=== PATIENT | male | born 1980 | race Hispanic/Latino ===

== ENCOUNTER 2017-02-18 11:18 | Emergency (ER) | payer OTHER ==
[~2017-02-18] VITALS: Ht 167.6 cm; Wt 86.4 kg
[2017-02-18 11:30] VITALS: BP 172/78; PULSE 70; RESP 14; O2SAT 100
--- NOTE | 2017-02-18 11:44 | ED.REPORT ---
HPI-Extremity Problem Upper Date of Service Feb 18, 2017 ED Provider: Grupo Singh MD Efren is otherwise healthy and right-handed 36-year-old male patient with chief complaint of right wrist pain. Patient states he was standing on the third rung of an 8 foot ladder when he fell to the ground, catching himself onto outstretched right hand. Patient states that he also struck his right forehead and felt momentarily dazed. Denies loss of consciousness, headache, vomiting, seizure, use of blood thinners or bleeding/clotting disorders. Denies neck pain. Complains of severe pain in his right wrist. Nursing Notes Stated Complaint: RIGHT WRIST PAIN Chief Complaint: Extremity Trauma Allergies: Coded Allergies: No Known Allergies (Unverified , 02/18/17) Scheduled PRN Hydrocodone-Acetaminophen 5-325 mg (Hydrocodone-Acetaminophen 5-325 mg) 1 Each Tablet 1-2 TABLET PO QID PRN PRN For Pain General Time Seen by MD: 11:44 Chief Complaint Hand injury right Past Medical History Past Medical History Denies Review of Systems Review of Systems Note: Negative unless stated otherwise in history of present illness Physical Exam General: Well appearing, well developed, well nourished, no acute distress. Head: Slight abrasion on the right forehead. Right elbow: Normal to inspection, nontender, full range of motion Right hand/wrist: Notable deformity at the base of the fourth metacarpal. Range of motion severely limited. Radial pulse 2+. Sensation brisk capillary refill intact in distal phalanges. Eyes: No scleral icterus or injection. No discharge. Vision grossly intact. ENT: Voice clear, hearing grossly intact. Respiratory: No respiratory distress, no increased work of breathing. Speaks in complete sentences. Skin: Warm and dry. Neurological: Grossly nonfocal. Psychological: alert and oriented. Speech appropriate, linear and logical. Behavior appropriate. Initial Vital Signs Vital Signs (First) Date Time Temp Pulse Resp B/P Pulse Ox O2 Delivery O2 Flow Rate FiO2 02/18/17 11:30 36.4 70 14 172/78 100 Room Air Elevated blood pressure Interpretation & Diagnostics Interpretation & Diagnostics: PROCEDURE: CT BRAIN WITHOUT CONTRAST ([id number]) INDICATIONS: fall, head injury IMPRESSION: 1. No definite acute intracranial hemorrhage. 2. Small focus of increased density overlying the inferior right frontal lobe near the sylvian fissure may represent a calcification. However, a subtle focal hemorrhage is difficult to exclude. The need for further evaluation utilizing MRI may be determined clinically PROCEDURE: CT CERVICAL SPINE WITHOUT CONTRAST ([id number]) INDICATIONS: 36 year-old male with head injury after fall. IMPRESSION: No acute bony injuries of the cervical and upper thoracic spine from the foramen magnum to the T4-T5 level. PROCEDURE: MRI BRAIN WITHOUT CONTRAST ([id number]) INDICATIONS: Abnormal CT,head injury IMPRESSION: 1. T2 hypointense circumscribed mass as described above which corresponds with a high density focus on CT from earlier today. This finding in conjunction with minimal susceptibility artifact on the gradient sequence suggests calcification as opposed to acute hemorrhage. If there is high clinical suspicion for intracranial hemorrhage, repeat CT in 4 hours could be considered. X-Ray Interpretation Xray Interpretation: PROCEDURE: X-RAY RIGHT HAND, MINIMUM THREE VIEWS ([id number]) INDICATIONS: FALL IMPRESSION: Dorsal dislocation of the metacarpals with respect to the carpal bones. Small fractures are present. Interpretation / Wet Read by: Interpret - Radiologist, [facility] Xray Interpretation: PROCEDURE: X-RAY RIGHT HAND, MINIMUM THREE VIEWS ([id number]) INDICATIONS: postreduction IMPRESSION: 1. Dorsal dislocations of the third, fourth, and fifth metacarpal sat the carpometacarpal joints are reduced. There is normal anatomic alignment. 2. Small fracture fragment (s) project proximal to the fifth metacarpal brace on the oblique view. Interpretation / Wet Read by: Interpret - Radiologist Procedures Proced Mod Sedation/Analgesia Time: 13:29 Procedure Performed by: ED physician Sedation Time: 10 - 15 min Consent / Setup: Informed consent provided, Consent from patient, Time-out performed, Hand hygiene observed, Patient sitting up Indication: Fracture reduction Preparation: monitoring and evaluation advisor applied, Pulse oximeter applied, Constant attendance, IV access established, Eval last meal time, Supplemental oxygen, Procedure explained, Suction available, End tidal CO2 mon applied VS Prior to Procedure: All vital signs normal Airway Exam: Normal anatomy CVS/Resp Exam: Normal breath sounds, Normal heart sounds Neuro Exam: Alert, No acute distress, Responsive Sedation: Sedation: Ketamine (50 mcg) ASA Classification: 1 normal healthy patient Response During Procedure: Handled secretions adeq, Maintained airway well, Oxygenation stable, Sedation appropriate, Vital signs stable Complications During/After: None Reversal: None required Mental Status After Procedure: Alert, Oriented X3, Response to verbal stim, Normal per age, At patient's baseline Post-Procedure: Alert prior to discharge, Ambulatory with assist, Pt rtn pre- proc baseline, Vital signs normal Attestation: I performed procedure, I performed sedation Reduction Finger The 3rd, 4th, and 5th metacarpals are dislocated dorsally with respect to the carpal bones. Time: 13:31 Procedure Performed by: ED physician Consent / Setup / Site Prep: Informed consent provided, Consent from patient, Time-out performed, Oxygen administered, Pulse oximeter applied, monitoring and evaluation advisor applied, Hand hygiene observed Finger / Joint Involved: Right 3, Right 4, Right 5 Procedural Sedation/Analgesia: Sedation: Ketamine (50 mcg) Post-Procedure / Complications: NV intact post-procedure, Procedure successful , X-ray confirms reduction, No complications, Tolerated procedure well, Patient stable Splint Application - Fx Mgt Time: 13:35 Procedure Performed by: Business Architect Precise Anatomic Location: right wrist Type of Immobilization: Sara tong Definitive Fracture Care: Pain control, Splint, Follow up > 4 days Post-Procedure / Complications: Cap refill normal, Post splint vascular nl, Post splint neuro nl, Condition improved, Tolerated procedure well, Patient stable Splint Post-Application Eval Extremity Condition: Cap refill < 2 sec, Distal sensation intact, Distal motor Intact, No compartment syndrome Re-Eval/Medical Decision Med Decision/Clinical Course Course of 36-year-old male presents with right hand pain following a fall from third rung of an 8 foot ladder. Patient reports landing on packed earth, causing right hand pain and striking his right forehead against the ground. He reports feeling dazed but denies losing consciousness, vomiting, seizure, headache, use of blood thinners. He also denies neck pain. On physical examination there is obvious deformity to the right hand near the base of the third metacarpal. Sensation and brisk capillary refill are intact distally, radial pulses 2+. X-ray confirms fracture and dislocation of the third fourth and fifth metacarpals in relation to the carpals. I discussed this with orthopedics who recommends reduction, splinting, follow-up in office. I discussed the case with Dr. Singh who met with and examined the patient, performed a reduction under procedural sedation with ketamine. Patient is placed in a splint. Post reduction x-ray shows near anatomical alignment. Dr. singh further recommend CT of the head and neck. This is reassuring for cervical injury but cannot definitively rule out small intracranial bleed. MRI is ordered based on the recommendation of radiology, which rules out bleeding. Patient is discharged to home with instructions for [id number] analgesia. Provide a small amount of [place] to supplement, with precautions. Provided orthopedic follow-up instructions. Provided emergency return precautions. Patient verbalizes understanding of and consent to plan. Re-Evaluation/Progress #1: Time of Eval: 15:19 Re-Evaluation/Progress Note: Patient reports continued headache. Discuss abnormal CT findings with the patient, discussed options of performing MRI or 24-hour CT to clarify. Patient consents to MRI. I discussed this with the radiologist who suggests MR head without contrast. Re-Evaluation/Progress #2: Time of Eval: 16:25 Re-Evaluation/Progress Note: Patient continues to do well. Complains of mild nausea likely secondary to narcotics. Consultation : Referral / Consult Name: Adam Parks MD Consulted With: Ortho hand Call Returned at: 12:41 Note: Dr. Grant recommends reduction by distracting the metacarpal and applying pressure to the dorsal aspect of the proximal end of the metacarpal. He feels that if there is a fracture and this will likely displace again. If the reduction remains, he asked that we place her in an ulnar gutter and have him follow-up in office in about a week. If not, he suggests ulnar gutter splint and follow-up in office urgently. Discharge & Departure Impression: Primary Impression: Hand fracture, right Encounter type: initial encounter Fracture type: closed Qualified Code: S62.91XA - Unspecified fracture of right wrist and hand, initial encounter for closed fracture Disposition: Home Discharge Condition All VS Reviewed: Yes Condition: Stable Patient Instructions: Splint Care (ED) Additional Instructions: Evaluation in the emergency department following a fall include interview, physical examination, x-rays of your hand and CT and MRI scans of your head and neck. These are reassuring that she did not have a serious head or neck injury. X-rays indicate a fracture in your right hand. After consultation with the orthopedic surgeon, We have reduced the displacement of the fracture in her right hand here in the emergency department and placed it in a splint. Please keep the splint on and dry until the hands assessed by the orthopedic surgeon. I have given her referral to the orthopedic surgeon, please contact his office tomorrow to arrange follow-up next week. The pain is best treated with 600 mg of ibuprofen (Advil, Motrin) every 6 hours , or 1000 mg of acetaminophen (Tylenol) every 6 hours. These drugs can be taken at the same time for more severe pain. I have written a prescription for a small amount of hydrocodone/acetaminophen 5/ 325 mg which can be SUBSTITUTED for the Tylenol to treat more severe pain. Do not take them together, and do not drink alcohol or operate a vehicle within 4 hours of taking this medication. Return emergency Department for any new or worsening symptoms including increasing pain in the hand or cold/numb fingers. Return also for increasing headache, neck pain, vomiting, seizure activity or other neurological symptoms. Referrals: Adam Parks MD EDSupervising Provider for APC: Grupo Singh MD Attestation Portions of this note were transcribed by Leah Hinson. I, Dr. Singh personally performed the history, physical exam and medical decision-making; I reviewed and confirmed the accuracy of the information in the transcribed note. Signed by: Niels Garcia, 02/18/2017 at 1400. Attending Statement Attending attestation: I saw this patient in conjunction with Doron Morrow PA-C. I was present for all aguiar portions of the history taking and physical examination. I agree with the workup, evaluation, treatment and disposition. In summary, the patient presents with hand/wrist injury as documented above. Patient was discussed with orthopedic surgery who recommended reduction at the bedside. I personally performed procedural sedation as well as fracture/dislocation reduction and splinting. The patient tolerated the procedure well. Repeat films demonstrated good ointment. Patient will be discharged with pain medication and follow-up with orthopedic surgery. Grupo Singh MD copies to: Adam Parks MD, Beck O MD Feb 18, 2017 11:44 Doron Morrow PA-C Feb 18, 2017 12:41 Leah Hinson Feb 18, 2017 13:35
[2017-02-18] MEDS ORDERED: HYDROcodone-APAP 5-325 mg Tablet PO ONE (11:55)
[2017-02-18] MEDS ORDERED: HYDROmorphone 1 mg/mL Inj IM ONE (12:25)
[2017-02-18] MEDS ORDERED: Ketamine 100 mg/mL 5 mL Inj IV ONE (12:40)
--- NOTE | 2017-02-18 12:44 | DRSVH ---
PROCEDURE: X-RAY RIGHT HAND, MINIMUM THREE VIEWS ([id number]) INDICATIONS: FALL TECHNIQUE: 3 views of the hand(s) acquired. COMPARISON: None. FINDINGS: Bones: The 3rd, 4th, and 5th metacarpals are dislocated dorsally with respect to the carpal bones. T here are subtle fractures involving the bases of these joints. No additional fractures are appreciat ed. There are mild degenerative changes of the distal radial ulnar joint with associated ulnar posit franck variance. Soft tissues: No suspicious soft tissue calcifications. No unexpected radiopaque foreign bodies are evident. IMPRESSION: Dorsal dislocation of the metacarpals with respect to the carpal bones. Small fractures are present. Dictated by: Marco Antonio Perales M.D. on 02/18/2017 at 11:41 Approved by: Marco Antonio Perales M.D. on 02/18/2017 at 11:42
--- NOTE | 2017-02-18 14:19 | DRSVH ---
PROCEDURE: X-RAY RIGHT HAND, MINIMUM THREE VIEWS ([id number]) INDICATIONS: postreduction TECHNIQUE: 3 views of the hand(s) acquired. COMPARISON: [facility], CR, XR HAND 3VW RT, 02/18/2017, 11:40. FINDINGS: Bones: Dorsal dislocation of the third, fourth, and fifth metacarpals at the carpometacarpal joints a re reduced. There is anatomic alignment. Small fracture fragment(s) are seen proximal to the fifth me tacarpal base on the oblique projection. Carpal bones are normally aligned. No suspicious bony lesio ns. Fine bony details are obscured by overlying cast. Soft tissues: No suspicious soft tissue calcifications. IMPRESSION: 1. Dorsal dislocations of the third, fourth, and fifth metacarpal sat the carpometacarpal joints are reduced. There is normal anatomic alignment. 2. Small fracture fragment (s) project proximal to the fifth metacarpal brace on the oblique view. Dictated by: Mojgan Steel M.D. on 02/18/2017 at 14:11 Approved by: Mojgan Steel M.D. on 02/18/2017 at 14:17
--- NOTE | 2017-02-18 14:57 | DRSVH ---
PROCEDURE: CT BRAIN WITHOUT CONTRAST ([id number]) INDICATIONS: fall, head injury TECHNIQUE: Noncontrast 4.5 mm thick angled axial sections acquired from the foramen magnum to the vertex, with c oronal reformats. COMPARISON: None. FINDINGS: Image quality: Diagnostic. Brain: There is no definite acute intra-axial or extra-axial hemorrhage. However, there is a rounded area of increased attenuation identified overlying the inferior right frontal lobe near the sylvian fissure (image 16, series 2), measuring approximately 5 mm in diameter. Calcification within the reg ion of the tentorium is noted. No extra-axial fluid collection is identified. There is no midline s hift or mass effect. The orbits are grossly unremarkable. No large areas of diffusely decreased attenuation are evident within the brain to suggest diffuse cer ebral edema. No focal parenchymal abnormality is identified. The ventricles and cortical sulci are age-appropriate. Bones: Calvarium and visualized facial bones are grossly intact. The imaged paranasal sinuses and m astoid air cells are clear. IMPRESSION: 1. No definite acute intracranial hemorrhage. 2. Small focus of increased density overlying the inferior right frontal lobe near the sylvian fissu re may represent a calcification. However, a subtle focal hemorrhage is difficult to exclude. The n eed for further evaluation utilizing MRI may be determined clinically Dictated by: Marco Antonio Perales M.D. on 02/18/2017 at 13:49 Approved by: Marco Antonio Perales M.D. on 02/18/2017 at 13:56
--- NOTE | 2017-02-18 14:57 | DRSVH ---
PROCEDURE: CT CERVICAL SPINE WITHOUT CONTRAST ([id number]) INDICATIONS: 36 year-old male with head injury after fall. TECHNIQUE: Noncontrast 3 mm thick sections acquired from the skull base to the T4 level. Sagittal and coronal r eformats were then constructed. For radiation dose reduction, the following was used: automated exp osure control, adjustment of mA and/or kV according to patient size. COMPARISON: None. FINDINGS: Image quality: Excellent. Bones: No fractures or dislocations. Visualized superior ribs are intact. Incidental bone island i s noted within the C2 spinous process. Soft tissues: Prevertebral soft tissues are normal in thickness. No paravertebral hematomas. No ap ical pneumothoraces. IMPRESSION: No acute bony injuries of the cervical and upper thoracic spine from the foramen magnum t o the T4-T5 level. Dictated by: Guru Fortune M.D. on 02/18/2017 at 14:52 Approved by: Guru Fortune M.D. on 02/18/2017 at 14:55
[2017-02-18] MEDS ORDERED: Ondansetron 2 mg/mL 2 mL Inj ONE (15:01)
[2017-02-18 15:09] VITALS: BP 138/85; PULSE 72; RESP 18; O2SAT 97
--- NOTE | 2017-02-18 16:31 | DRSVH ---
PROCEDURE: MRI BRAIN WITHOUT CONTRAST ([id number]) INDICATIONS: Abnormal CT,head injury TECHNIQUE: Noncontrast axial T1 spin echo, axial T2 fast spin echo, sagittal and axial FLAIR, coronal T2 fast sp in echo, axial gradient echo, axial diffusion and ADC through the brain. COMPARISON: [facility], CT, CT BRAIN WO CON, 02/18/2017, 14:41. FINDINGS: Image quality: Excellent. CSF Spaces: Basal cisterns are patent. No extra-axial fluid collections. Ventricles are normal in size and shape. Brain: No intracranial masses or hemorrhage. A T2 hypointense circumscribed mass corresponds to the high density focus within the right frontal lobe on the CT from earlier today. There is only trace san[place] sceptibility artifact on the gradient sequence. Beck/white matter interface is normal. Brainstem gustavo ears normal. Diffusion-weighted images demonstrate no acute ischemic insult. No chronic ischemic in sults. Normal intravascular flow voids are present. Skull and face: Calvarium has normal marrow signal. Orbits appear normal. Sinuses: Sinuses and mastoids are clear. IMPRESSION: 1. T2 hypointense circumscribed mass as described above which corresponds with a high density focus o n CT from earlier today. This finding in conjunction with minimal susceptibility artifact on the grad ient sequence suggests calcification as opposed to acute hemorrhage. If there is high clinical suspic ion for intracranial hemorrhage, repeat CT in 4 hours could be considered. Dictated by: Thalia Ann M.D. on 02/18/2017 at 16:18 Approved by: Thalia Ann M.D. on 02/18/2017 at 16:27
[2017-02-18] MEDS ORDERED: HYDR-4003 PO (16:42)
[2017-02-18 16:51] VITALS: BP 131/89; PULSE 66; RESP 15; O2SAT 97
[2017-02-23] MEDS ORDERED: FLUT16SP NS (09:47)
== END 2017-02-18 16:51 | disposition home or self-care (01) ==
LOC: EDSEX 11:18 → SED 11:18
DX: S62.312A Displaced fracture of base of third metacarpal bone, right hand, initial encounter for closed fracture (principal); S62.314A Displaced fracture of base of fourth metacarpal bone, right hand, initial encounter for closed fracture; S62.316A Displaced fracture of base of fifth metacarpal bone, right hand, initial encounter for closed fracture; S00.81XA Abrasion of other part of head, initial encounter; W11.XXXA Fall on and from ladder, initial encounter; Y93.89 Activity, other specified; Y99.0 Civilian activity done for income or pay; Y92.69 Other specified industrial and construction area as the place of occurrence of the external cause; R51 Headache; R03.0 Elevated blood-pressure reading, without diagnosis of hypertension
CPT/HCPCS: 26605; 70450; 70551; 72125; 73130; 94799; 96372; 99152; 99285; J1170

== ENCOUNTER 2017-02-25 12:16 | Day surgery (SDC) | payer OTHER ==
[~2017-02-25] VITALS: Ht 172.7 cm; Wt 88.9 kg
[2017-02-25] VITALS (8 sets, daily range): BP systolic 117–142; BP diastolic 78–98; PULSE 66–71; RESP 12–17; O2SAT 96–98
[~2017-02-25 12:16] MED LIST: CeFAZolin Inj 2 GM in IV Premix 1 EACH IV ONE; FLUT16SP NS; HYDR-4003 PO
[2017-02-25] MEDS ORDERED: fentaNYL-PF 50 mCg/mL 2 mL Inj ONE (12:17)
[2017-02-25] MEDS ORDERED: Ondansetron 2 mg/mL 2 mL Inj ONE (12:17)
[2017-02-25] MEDS ORDERED: Ketamine 10 mg/mL 20 mL Inj ONE (12:17)
[2017-02-25] MEDS ORDERED: Dexamethasone 4 mg/mL Inj ONE (12:17)
[2017-02-25] MEDS ORDERED: CeFAZolin 2 Gm/50 mL D5W Duplex Bag IV ONE (12:31)
[2017-02-25] MEDS ORDERED: Lactated Ringer's 1,000 ML IV ONE (13:28)
[2017-02-25] MEDS ORDERED: Lactated Ringer's 500 ML IV PRN (14:57)
[2017-02-25] MEDS ORDERED: Lactated Ringer's 1,000 ML IV SCH (14:57)
--- NOTE | 2017-02-25 14:57 | PCM.HPANE ---
Patient Data Surgeon Admitting Provider: Attending Provider:Adam Parks MD Primary Care Physician:Nj Other Provider:Antonieta Cruz Anesthesia Reason for Visit Right Metacarapal Carpal Fractures Ht/WT & BMI Height (Feet): 5 Height (Inches): 8.00 Weight (Kilograms): 88.900 Body Mass Index 29.00 Allergies Coded Allergies: No Known Allergies (Unverified , 02/18/17) Past Anesthesia History Anesthesia History: Denies:: Abnormal Airway, Anesthesia Reactions, Difficult Intubation Diabetes History Hx Diabetes?: No MRSA MRSA: No Medications Hypertension Medication: No Home Meds Incl Beta Beto: No Active Scripts Hydrocodone-Acetaminophen 5-325 mg 1 Each Tablet1-2 Tablet PO QID PRN For Pain # 20 TABLET Ref 0 Prov:Doron Morrow PA-C 02/18/17 Reported Medications Fluticasone Propionate (Fluticasone Propionate Nasal)16 Gm [place].susp2 [place] NS BID #16 GM Ref 0 02/23/17 History History of ENT Problems?: No HEENT History: Denies:: Abnormal Airway Cataracts Difficult Intubation Dysphagia Glaucoma Hearing Problem Sinus Problem TMJ Denture Type: None Teeth Condition: Within Normal Limits Hx of Heart Problems?: No Cardiovascular History: Denies:: AICD Abdominal Aortic Aneurism Atrial Fibrillation Cardiac Surgery Chest Pain Congestive Heart Failure Coronary Artery Disease Edema Heart Murmur Hypertension Irregular Heartbeat Pacemaker Peripheral Vascular Rheumatic Fever Thrombophlebitis Valvular Heart Disease Hx of Respiratory Problem?: No Respiratory History: Denies:: Oxygen Administration Tuberculosis Use of C-PAP Machine Hx Neurologic Problems?: Yes Other Neurological Pertinent: struck head during fall on 02/18/17- states felt momentarily dazed- no LOC Hx of GI Problems?: No Hx of Problems?: No Male Hx: Denies:: Prostate Problems Skin History: Denies:: History Skin Disorders? Pressure Ulcers Hx Musculoskeletal Problems?: Yes Musculoskeletal History: Positive for:: Musculoskeletal Trauma (fracture right hand- fall from ladder 02/18/17 current admission problem) Hx of Psycho/Social Problems?: No Hx Surgeries?: No Hx Any Other Health Problems?: Yes Other History: Denies:: Cancer Thyroid Disease Hx Diabetes: No Stop/Bang Treated for Sleep Apnea?: No Do You Have a CPAP Machine?: No S-Snoring: Do You Snore Loudly: No T-Tired: feel tired, fatigued: No P-Blood Pressure: treated: No B- Body Mass Index > 35 kg/m2: No A- Age over 50: No N- Neck Large Circumference: No G- Gender Male: Yes LOIS Risk Assessment: Low Risk, <3 Yes Risk Assessment Category Category 1A: Patient has history of documented sleep apnea, and HAS NOT received any narcotic, sedative or anesthesia administration during this stay. Category 1B: Patient has history of documented sleep apnea, and HAS received any narcotic , sedative or anesthesia administration during this stay Category 2: Patient has SUSPECTED Obstructive Sleep Apnea, and HAS received any narcotic , sedative or anesthesia administration during this stay. Category 3: Patient has SUSPECTED Obstructive Sleep Apnea and HAS NOT received narcotic, sedative or anesthesia administration during this stay. Category 4: Outpatient in Procedural Areas with known sleep apnea or who screen positive for High Risk via the STOP/BANG questionnaire. Exam Exam Vital Signs Vital Signs Date Time Temp Pulse Resp B/P Pulse Ox O2 Delivery O2 Flow Rate FiO2 02/25/17 13:11 36.7 70 17 121/78 96 Room Air General Appearance: Alert, Oriented X3, Cooperative, No Acute Distress HEENT/AIRWAY: MP 2 Lungs: Clear to Auscultation, Normal Air Movement Heart: Exam Unremarkable, Regular Rate/Rhythm, No Murmurs/Rubs/Gallops Meds/Labs/Diagnostics Admission Meds Current Medications Lactated Ringer's (Lr) 1,000 ml @ ud STK-MED ONCE IV Last administered on t 13:28; Start 02/25/17 at 13:28; Stop 02/25/17 at 13:29; Status DC Plan Impression Patient chart reviewed, patient interviewed and anesthestic plan with risks, benefits, and alternatives discussed, and informed consent obtained. ASA Physical Status: ASA2 Mod Systemic Disease Anesthetic Plan: GA Bene/Risks/Altern/Consents: Yes HP Complete Prior to Induction: Yes Gopal Herbert MD Feb 25, 2017 14:57
[2017-02-25] MEDS ORDERED: Dexamethasone 4 mg/mL Inj IVPUSH PRN (15:00)
[2017-02-25] MEDS ORDERED: EPHEDrine Sulfate 50 mg/mL Inj IVPUSH PRN (15:00)
[2017-02-25] MEDS ORDERED: MetoCLOpramide 5 mg/mL 2 mL Inj IVPUSH PRN (15:00)
[2017-02-25] MEDS ORDERED: Phenylephrine 10,000 mCg/mL Inj IVPUSH PRN (15:00)
[2017-02-25] MEDS ORDERED: Ondansetron 2 mg/mL 2 mL Inj IVPUSH PRN (15:00)
[2017-02-25] MEDS ORDERED: Bupivacaine-MPF 0.25%/EPI 30 mL Inj INFILTRATE ONE (16:06)
[2017-02-25] MEDS ORDERED: Bacitracin Ointment Packet TOPICAL ONE (16:32)
[2017-02-25] MEDS ORDERED: oxyCODONE-Acetamin 5-325 mg Tablet PO PRN (16:45)
[2017-02-25] MEDS: HYDROmorphone 1 mg/mL Inj IVPUSH PRN ×2 (16:59→17:19)
[2017-02-25] MEDS: fentaNYL-PF 50 mCg/mL 2 mL Inj IVPUSH PRN ×2 (16:59→17:19)
--- NOTE | 2017-02-25 17:45 | PCM.ANEP1 ---
Post Anesthesia PACU Phase 1 Assessment Vital Signs Vital Signs Date Time Temp Pulse Resp B/P Pulse Ox O2 Delivery O2 Flow Rate FiO2 02/25/17 17:00 67 14 133/98 98 Simple Mask 8 02/25/17 16:43 36.1 68 12 117/83 98 Simple Mask 8 02/25/17 13:11 36.7 70 17 121/78 96 Room Air Anesthetic Administered: GA Level of Alertness: Awake, talking ALBERTO's with Equal Strength: Yes Pain: No Nausea or Vomiting: No CV Function & Hydration Stable: Yes Airway Device: Oralpharangeal Airway Oxygen Delivery: Simple Mask Lungs: Clear to Auscultation, Normal Air Movement PACU Phase 2 Assessment Complications: No Follow up Care: No Patient Instructions Provided: N/A Gopal Herbert MD Feb 25, 2017 17:45
--- NOTE | 2017-02-27 16:49 | OP ---
[address] [address] OPERATIVE REPORT PATIENT: TSERING WASHINGTON : 1980 MR#: [id number] ADMIT: 02/25/2017 JOB ID: [id number] DATE OF SURGERY: 02/25/2017 PREOPERATIVE DIAGNOSIS(ES): 1. Right middle finger carpometacarpal fracture dislocation. 2. Right ring finger carpometacarpal fracture dislocation. 3. Right small finger carpometacarpal fracture dislocation. POSTOPERATIVE DIAGNOSIS(ES): 1. Right middle finger carpometacarpal fracture dislocation. 2. Right ring finger carpometacarpal fracture dislocation. 3. Right small finger carpometacarpal fracture dislocation. PROCEDURE: 1. Closed reduction and percutaneous fixation of right middle finger carpometacarpal fracture dislocation. 2. Closed reduction and percutaneous fixation or pinning of right ring finger carpometacarpal fracture dislocation. SURGEON: Adam Parks MD. PHARMACY ANALYST: None. ANESTHESIA: General anesthesia. COMPLICATIONS: None apparent. ESTIMATED BLOOD LOSS: Minimal. SPECIMEN: None. IMPLANTS: Two 0.062 inch K-wires. INDICATIONS FOR PROCEDURE: This is a 36-year-old male patient who sustained a fall from a 6-7 foot ladder and landed on his outstretched hands. Patient sustained a fracture dislocation of the right middle, ring, and small finger carpometacarpal joint. Attempted reduction was carried out by the ED staff. Post reduction x-ray showed subluxation of at least one of the reductions. At this point, a percutaneous fixation is indicated to preserve alignment. PROCEDURES AND FINDINGS: The patient was identified in the preoperative area and surgical site was marked. The patient was then taken back to the operating room and placed supine on the operating table. Appropriate time-outs were taken. General anesthesia was induced smoothly. The patient was then prepped and draped in the usual sterile manner. Local anesthesia was then infiltrated to the dorsum of the right hand. At this point, the carpometacarpal joint of the middle, ring, and small finger was examined with portable fluoroscopy. It was noted that the small finger reduction is quite stable. The ring and middle finger reduction had a tendency to dorsally sublux. There is also some foreshortening due to the subluxation and proximal displacement. At this point, I elected to proceed with percutaneous fixation of both of these fingers. I first turned my attention to the ring finger. A small longitudinal incision was made in the ring/middle interspace at the level of the metacarpal base. This was done with a 15 blade. I then performed blunt dissection down to the radial dorsal aspect of the metacarpal base. Once this had been exposed, a 0.062 K-wire was driven through the metacarpal base into the hamate. Location of the pin was confirmed with multiple views using the portable fluoroscopy. The area was examined and no attending impingement was found. The pin was bent and trimmed. It was then turned against the ring metacarpal. I then turned my attention to the middle finger metacarpal dislocation. Again, a small longitudinal incision was made in the index/middle interval at the level of the metacarpal base. Again an incision was made with a 15 blade. It was then deepened down to the radial aspect of the middle metacarpal base. Once this has been done, a 0.062 K-wire was then driven through the base of the middle metacarpal into the capitate. Again, location of the pin was confirmed with multiple views. The pin was then bent and trimmed. It was then turned against the middle finger metacarpal. Again, the area was checked and no obvious extensor impingement was found. The incisions were then closed using 4-0 nylon simple interrupted sutures. The patient tolerated the procedure well. Needle count, sponge count, instrument counts were correct at the end of the procedure. The patient was placed into a well-padded volar splint in intrinsic plus position up to the proximal interphalangeal joint. The patient was then transported to recovery in stable condition.
== END 2017-02-25 23:59 | disposition home or self-care (01) ==
LOC: SAS 12:16
PROVIDERS: ATTEND Plastic Surgery
DX: S62.314A Displaced fracture of base of fourth metacarpal bone, right hand, initial encounter for closed fracture (principal); S62.312A Displaced fracture of base of third metacarpal bone, right hand, initial encounter for closed fracture; S62.316A Displaced fracture of base of fifth metacarpal bone, right hand, initial encounter for closed fracture; S63.262A Dislocation of metacarpophalangeal joint of right middle finger, initial encounter; S63.264A Dislocation of metacarpophalangeal joint of right ring finger, initial encounter; S63.266A Dislocation of metacarpophalangeal joint of right little finger, initial encounter; W11.XXXA Fall on and from ladder, initial encounter; Y93.89 Activity, other specified; Y92.69 Other specified industrial and construction area as the place of occurrence of the external cause; Y99.0 Civilian activity done for income or pay
CPT/HCPCS: 26608; J0690; J1100; J1170; J2405; J3010; J7120

== ENCOUNTER → 2017-05-13 | Day surgery (SDC) | payer OTHER ==
[~2017-05-13] VITALS: Ht 137.2 cm; Wt 90.4 kg
[2017-05-13] VITALS (9 sets, daily range): BP systolic 114–135; BP diastolic 79–92; PULSE 58–66; RESP 10–16; O2SAT 97–100
[~2017-05-13] MED LIST changes: +Bupivacaine-MPF 0.25% 30 mL Inj INFILTRATE ONE; +CeFAZolin 2 Gm/50 mL D5W Duplex Bag IV ONE; +Dexamethasone 4 mg/mL Inj IVPUSH PRN; +EPHEDrine Sulfate 50 mg/mL Inj IVPUSH PRN; -FLUT16SP NS; +FLUT9.9S NS; -HYDR-4003 PO; +HYDROcodone-APAP 10-325 mg PO PRN; +HYDROmorphone 1 mg/mL Inj IVPUSH PRN; +Lactated Ringer's 1,000 ML IV ONE; +Lactated Ringer's 1,000 ML IV SCH; +Lactated Ringer's 500 ML IV PRN; +MetoCLOpramide 5 mg/mL 2 mL Inj IVPUSH PRN; +Ondansetron 2 mg/mL 2 mL Inj IVPUSH PRN; +Ondansetron 2 mg/mL 2 mL Inj ONE; +Phenylephrine 10,000 mCg/mL Inj IVPUSH PRN; +Propofol 10,000 mCg/mL 20 mL Inj ONE; +fentaNYL-PF 50 mCg/mL 2 mL Inj IVPUSH PRN; +fentaNYL-PF 50 mCg/mL 2 mL Inj ONE
--- NOTE | 2017-05-13 05:55 | PCM.HPANE ---
Patient Data Surgeon Admitting Provider: Attending Provider:Adam Parks MD Primary Care Physician:Nj Other Provider:Antonieta Cruz Anesthesia Reason for Visit Right Hand Injury Ht/WT & BMI Height (Feet): 5 Height (Inches): 8 Weight (Kilograms): 87.9 Body Mass Index 29.00 Allergies Coded Allergies: No Known Allergies (Unverified , 05/11/17) Past Anesthesia History Anesthesia History: Denies:: Abnormal Airway, Anesthesia Reactions, Difficult Intubation, Malignant Hyperthermia Diabetes History Hx Diabetes?: No MRSA MRSA: No Medications Hypertension Medication: No Home Meds Incl Beta Beto: No Reported Medications Fluticasone Propionate (Flonase Allergy Relief)50 Mcg/Actuation [place].susp9.9 Ml NS DAILY 05/11/17 Discontinued Reported Medications Fluticasone Propionate (Fluticasone Propionate Nasal)16 Gm [place].susp2 [place] NS BID #16 GM Ref 0 02/23/17 Discontinued Scripts Hydrocodone-Acetaminophen 5-325 mg 1 Each Tablet1-2 Tablet PO QID PRN For Pain # 20 TABLET Ref 0 Prov:Doron Morrow PA-C 02/18/17 History History of ENT Problems?: No HEENT History: Denies:: Abnormal Airway Cataracts Difficult Intubation Dysphagia Hearing Problem Sinus Problem TMJ Denture Type: None Teeth Condition: Within Normal Limits Hx of Heart Problems?: No Cardiovascular History: Denies:: AICD Abdominal Aortic Aneurism Atrial Fibrillation Cardiac Surgery Chest Pain Congestive Heart Failure Edema Heart Murmur Hypertension Irregular Heartbeat Pacemaker Rheumatic Fever Thrombophlebitis Valvular Heart Disease Hx of Respiratory Problem?: No Respiratory History: Denies:: Oxygen Administration Pneumonia Pulmonary Embolism Tuberculosis Use of C-PAP Machine Hx Neurologic Problems?: No Neurological History: Denies:: Alzheimer's Disease CVA Dementia Dizziness Headaches Parkinson's Disease Seizures TIA Hx of GI Problems?: No Hx of Problems?: No Male Hx: Denies:: Prostate Problems Skin History: Denies:: History Skin Disorders? Pressure Ulcers Hx Musculoskeletal Problems?: Yes Musculoskeletal History: Positive for:: Musculoskeletal Trauma (fracture right hand- fall from ladder 02/18/17 current admission problem) Denies:: Degenerative Joint Fibromyalgia Joint Replacement Osteoarthritis Rheumatoid Arthritis Hx of Psycho/Social Problems?: No Hx Surgeries?: Yes (rt hand ) Hx Any Other Health Problems?: No Other History: Denies:: Cancer Hospitalization Thyroid Disease History Blood Transfusions: Positive for:: Accept Blood Products? Denies:: Blood Transfusions Hx Diabetes: No Hx Alcohol Use: NoHx Substance Use: No Stop/Bang Treated for Sleep Apnea?: No Do You Have a CPAP Machine?: No S-Snoring: Do You Snore Loudly: No T-Tired: feel tired, fatigued: No O-Obsered: Observed not breath: No P-Blood Pressure: treated: No B- Body Mass Index > 35 kg/m2: No A- Age over 50: No N- Neck Large Circumference: No G- Gender Male: Yes LOIS Total Score: 1 LOIS Risk Assessment: Low Risk, <3 Yes Risk Assessment Category Category 1A: Patient has history of documented sleep apnea, and HAS NOT received any narcotic, sedative or anesthesia administration during this stay. Category 1B: Patient has history of documented sleep apnea, and HAS received any narcotic , sedative or anesthesia administration during this stay Category 2: Patient has SUSPECTED Obstructive Sleep Apnea, and HAS received any narcotic , sedative or anesthesia administration during this stay. Category 3: Patient has SUSPECTED Obstructive Sleep Apnea and HAS NOT received narcotic, sedative or anesthesia administration during this stay. Category 4: Outpatient in Procedural Areas with known sleep apnea or who screen positive for High Risk via the STOP/BANG questionnaire. Exam Exam General Appearance: Alert, Oriented X3, Cooperative, No Acute Distress HEENT/AIRWAY: MP 2 Lungs: Clear to Auscultation, Normal Air Movement Heart: Exam Unremarkable, Regular Rate/Rhythm, No Murmurs/Rubs/Gallops Plan Impression Patient chart reviewed, patient interviewed and anesthestic plan with risks, benefits, and alternatives discussed, and informed consent obtained. NPO per Anesth. Guidelines: Yes ASA Physical Status: ASA1 Normal Healthy Anesthetic Plan: GA Bene/Risks/Altern/Consents: Yes HP Complete Prior to Induction: Yes Anna Dyer MD May 13, 2017 05:55
--- NOTE | 2017-05-13 09:06 | PCM.ANEP1 ---
Post Anesthesia PACU Phase 1 Assessment Vital Signs Vital Signs Date Time Temp Pulse Resp B/P Pulse Ox O2 Delivery O2 Flow Rate FiO2 05/13/17 08:39 60 14 124/90 100 Room Air 05/13/17 08:35 62 11 125/86 98 Room Air 05/13/17 08:30 35.9 60 10 124/81 97 Room Air 05/13/17 08:25 60 10 114/90 98 Room Air 05/13/17 08:20 59 10 117/90 99 Simple Mask 8 05/13/17 08:17 36.1 59 10 117/84 99 Simple Mask 8 05/13/17 06:05 36.3 64 16 118/79 98 Room Air Anesthetic Administered: GA Level of Alertness: Awake, talking Pain: No Nausea or Vomiting: No CV Function & Hydration Stable: Yes Airway Device: Oxygen Delivery: Room Air Lungs: Clear to Auscultation, Normal Air Movement PACU Phase 2 Assessment Complications: No Follow up Care: No Patient Instructions Provided: Yes Anna Dyer MD May 13, 2017 09:06
--- NOTE | 2017-05-13 11:04 | OP ---
[address] [address] OPERATIVE REPORT PATIENT: TSERING WASHINGTON : 1980 MR#: [id number] ADMIT: 05/13/2017 JOB ID: [id number] DATE OF SURGERY: 05/13/2017 PREOPERATIVE DIAGNOSIS(ES): 1. History of right middle, ring and small finger carpal metacarpal fracture dislocation status post reduction and internal fixation. 2. Retained hardware. POSTOPERATIVE DIAGNOSIS(ES): 1. History of right middle, ring and small finger carpal metacarpal fracture dislocation status post reduction and internal fixation. 2. Retained hardware. PROCEDURE: Removal of deep buried hardware. SURGEON: Adam Parks M.D. MERGERS AND ACQUISITIONS MANAGER: None. ANESTHESIA: General anesthesia. ESTIMATED BLOOD LOSS: Minimal. COMPLICATIONS: None apparent. SPECIMEN: None. INDICATIONS FOR PROCEDURE: This is a 36-year-old male patient who sustained a displaced fracture/dislocation of the middle, ring and small finger carpal metacarpal joint. The patient was taken to the operating room for reduction and pinning of the fracture/dislocation. The pins were buried. The patient has healed well. At this point, removal of the pins are indicated. PROCEDURES AND FINDINGS: The patient was identified in the preoperative area and surgical site was marked. The patient was then taken back to the operating room and placed supine on the operating table. Appropriate time-outs were taken. General anesthesia was induced smoothly. The patient was then prepped and draped in the usual sterile manner. Local anesthesia was then infiltrated on the ulnar aspect of the dorsal wrist for a sensory block. The right upper extremity was then exsanguinated and tourniquet inflated to 250 mmHg. It was noted that patient has two well-healed incision on the dorsum of the hand. I first opened the radial of the two. This was done with a #15 blade. I then bluntly dissected down toward the bone. I then encountered the end of the pin. Using a shopping centre manager, this was removed. I then turned my attention to the ulnar of the two incisions. Again incision was made with a #15 blade. There is some induration between the two incisions. I examined this area. It was found to be just inflammation and scar tissue. There is no hematoma or abscess. I then deepened the incision down again toward the pin. I used the mini fluoroscope to localize the end of the pin as it was not readily palpable. After dissection, the pin end was encountered. The pin was then removed using a shopping centre manager. Tourniquet was released and hemostasis was obtained with bipolar electrocautery. The incisions were reapproximated with 4-0 nylon simple interrupted sutures. I took several x-rays of the hand during this process. The fracture/dislocation appeared very well reduced. There is some bony callous formation near the base of the middle and ring fingers. The patient tolerated the procedure well. Needle count, sponge count and instrument counts were correct at the end of the procedure. The patient was extubated and transported to recovery in stable condition.
== END | disposition home or self-care (01) ==
LOC: SAS 05:40
PROVIDERS: ATTEND Plastic Surgery
DX: T85.848S Pain due to other internal prosthetic devices, implants and grafts, sequela (principal); S63.054D Dislocation of other carpometacarpal joint of right hand, subsequent encounter; S62.314D Displaced fracture of base of fourth metacarpal bone, right hand, subsequent encounter for fracture with routine healing; S62.312D Displaced fracture of base of third metacarpal bone, right hand, subsequent encounter for fracture with routine healing; S62.316D Displaced fracture of base of fifth metacarpal bone, right hand, subsequent encounter for fracture with routine healing; S63.262D Dislocation of metacarpophalangeal joint of right middle finger, subsequent encounter; S63.264D Dislocation of metacarpophalangeal joint of right ring finger, subsequent encounter; S63.266D Dislocation of metacarpophalangeal joint of right little finger, subsequent encounter; W11.XXXD Fall on and from ladder, subsequent encounter; Y92.69 Other specified industrial and construction area as the place of occurrence of the external cause
CPT/HCPCS: 20680; J0690; J1170; J2405; J2704; J3010; J7120